=== PATIENT | female | born 1950 | race Caucasian/White ===

== ENCOUNTER 2025-01-24 15:12 | Outpatient (AMB) | payer OTHER, SELFPAY ==
--- NOTE | 2025-01-24 15:15 | MHC.OFFVIS ---
Vital Signs 01/24/25 15:16 Height 5 ft 5 in Weight 176 lb 2 oz BMI 29.3 BP 188/93 H Blood Pressure Location Rt brachial Position Sitting Pulse 79 Pulse Source Pulse Oximeter Pulse Oximetry (%) 97 Oxygen Delivery Method Room Air Intake Visit Reasons: Chronic Feet Pain/Neuropathy Allergies monosodium glutamate Allergy (Unknown, Unverified 01/24/25 15:19) RESPIRATION Penicillins [PENICILLINS] Allergy (Unknown, Unverified 01/24/25 15:19) HIVES Sulfa (Sulfonamide Antibiotics) [SULFA (SULFONAMIDE ANTIBIOTICS)] Allergy (Unknown, Unverified 01/24/25 15:19) HIVES HPI Comments Details: Allison is very unfortunate 74 years old female who presents in my office with complains on neuropathic pain in bilateral lower extremities. She reported that this pain started about 1 year ago. She does not know the reason for her pain however she thinks that it is because of her diabetes. Her hemoglobin A1c is equal to 7.5. So it is moderately elevated. She is currently taking metformin and Jardiance, however she wanted to request her primary care physician to stop her Jardiance because it gives her yeast infection in private parts. Her pain is bothering her mostly during the daytime at night she is given significant doses of the benzodiazepines and she is able to sleep. She is able to function normally. She is a resident in [facility] in [place], [place]. In terms of tissue damage he reports her pain as hot burning, scalding, searing, tingling, stinging, dull, hurting, heavy, tiring, exhausting, spreading, radiating, piercing sensation. She is retired individual. She went for physical therapy for her condition and it resulted in no improvement. She was seen a therapist for anxiety. Her past medical history is significant for diabetes, hypertension, she is not taking any medications for high blood pressure, she is diagnosed with dementia, however today she presents with very bright mind remembering short-term and long-term events, knowing the date, time, and name of the president of this country. Her past surgical history significant for right mastectomy which was performed 4 years ago. Currently she is in remission for her cancer. She received chemotherapy, she was not able to tolerate radiation. She denies smoking cigarettes she denies drinking alcohol she drinks coffee 2 cups per day, she denies recreational drugs. [facility] Social History (Updated 01/24/25 @ 15:19 by Jill Manzano CMA) Housing: Assisted Living Facility Alcohol intake: never Patient Tobacco Use Status: Never used Tobacco Review of Systems Const All systems reviewed & are unremarkable except as noted in HPI and below ENT Reports Normal hearing present Card Reports no additional complaints Resp Reports no additional complaints GI Reports no additional complaints Reports no additional complaints Musc Reports no additional complaints Neuro Reports as per HPI, Reports Normal hearing present, Denies Abnormal speech present, Denies confusion and Denies Sensory deficit (Neuro) Psych Reports as per HPI and Denies confusion Physical Exam Vital Signs: Last Vital Signs Pulse 79 01/24/25 15:16 BP 188/93 H 01/24/25 15:16 Pulse Ox 97 01/24/25 15:16 Oxygen Delivery Method Room Air 01/24/25 15:16 BMI result Body Mass Index 29.3 Const General: no acute distress; No confusion Orientation/consciousness: patient oriented x3 and No confusion Eyes General: appearance normal, both eyes and all related structures Pupils: Equal, round and reactive pupils present EOM: EOMs intact bilaterally Neck Neck: Yes full ROM Chest Other: On inspection absence of the right breast status post mastectomy Resp Effort & Inspection: normal respiratory effort, able to speak in complete sentences, normal respiratory pattern, no audible wheezes and no cough Cardio Jugular venous distension: no JVD GI Inspection: Yes normal to inspection Neuro General: patient oriented x3, gait normal and No confusion Cranial nerves: Yes CN's II-XII intact bilaterally, Yes Equal, round and reactive pupils present, Yes Normal hearing present and Yes Ability to bilaterally elevate shoulders present Speech: No Abnormal speech present Gait exam (Neuro): Normal gait present Motor exam (neuro): 5/5 motor strength present throughout Sensory Exam: No Sensory deficit (Neuro) Extrem Other: Red discoloration of the bilateral feet mostly mostly proximal foot and toes more on the left and less on the right. Dorsalis pedis pulses are symmetrical and well detected +2 bilaterally, posterior tibial pulses +1 symmetrical and well detected. Capillary refill is brisk without delay. General: No pedal edema Psych Speech and movement: Normal speech and movement present Affect: normal affect Attitude: cooperative Thought process: Normal thought process present Thought content: Normal thought content present Insight: Good insight present (Psych) Judgement: Good judgement present (Psych) Assessment & Plan Assessment & Plan (1) Malignant neoplasm of breast in remission: Code(s): C50.919 - Malignant neoplasm of unspecified site of unspecified female breast Category: Medical (2) Diabetic polyneuropathy: Code(s): E11.42 - Type 2 diabetes mellitus with diabetic polyneuropathy Category: Medical (3) Chronic pain syndrome: Code(s): G89.4 - Chronic pain syndrome Category: Medical (4) Peripheral neuropathy due to chemotherapy: Code(s): G62.0 - Drug-induced polyneuropathy; T45.1X5A - Adverse effect of antineoplastic and immunosuppressive drugs, initial encounter Category: Medical Plan This very pleasant and very unfortunate 74 years old female who lives in long-term facility. I believe medical management of her condition was not successful, she tried lidocaine without success, capsaicin products would not be indicated for this patient because of her uncontrolled hypertension, escalation of gabapentin probably is in practical and as it is stated in a primary care physician's note might result in worsening situation with her memory. Therefore believe the best option for this patient is Nevro spinal cord stimulation. For this procedure she needs to go for psychological evaluation. She will not be able to afford [facility] psychological evaluation, she does not have computer at home. Therefore in the order to proceed with a trial of spinal cord stimulator Nevro I would need to find a way to schedule her for consultation with a psychologist who will be willing and able to evaluate her and give us permission to schedule her for Nevro trial. The facility she lives in the facility for patients with memory problems however today she demonstrated very good long-term and short-term memory good orientation in person, time, and place, I personally do not believe passing psychological evaluation for spinal cord stimulation will be an issue for this patient. Patient Instructions: I here by testify that I spent 45 minutes in conversation with this patient as well as planning her care, organizing this note and calling this patient is facility to find out who will be able to help us with this patient's condition and psychological evaluation. Coding Level of Care Code New Pt Level 4 (81859) Diagnoses Malignant neoplasm of breast in remission C50.919 Diabetic polyneuropathy E11.42 Chronic pain syndrome G89.4 Peripheral neuropathy due to chemotherapy G62.0; T45.1X5A
[2025-01-24 15:16] VITALS: BP 188/93; PULSE 79; O2SAT 97; BMI 29.3
== END 2025-01-24 16:00 | disposition home or self-care (01) ==
PROVIDERS: PCP Family Medicine; Visit Provider Anesthesiology
DX: C50.919 Malignant neoplasm of unspecified site of unspecified female breast (principal); E11.42 Type 2 diabetes mellitus with diabetic polyneuropathy; G89.4 Chronic pain syndrome; G62.0 Drug-induced polyneuropathy; T45.1X5A Adverse effect of antineoplastic and immunosuppressive drugs, initial encounter
CPT/HCPCS: 99204

== ENCOUNTER → 2025-01-24 15:12 | Outpatient (BNVA) | payer OTHER, SELFPAY | PROVIDERS: PCP Family Medicine; Visit Provider Anesthesiology | DX: E11.42 Type 2 diabetes mellitus with diabetic polyneuropathy (principal); G62.0 Drug-induced polyneuropathy; T45.1X5A Adverse effect of antineoplastic and immunosuppressive drugs, initial encounter; C50.919 Malignant neoplasm of unspecified site of unspecified female breast; G89.4 Chronic pain syndrome | CPT/HCPCS: 99202 ==

== ENCOUNTER 2025-02-21 15:03 | Outpatient (AMB) | payer OTHER, SELFPAY ==
[2025-02-21 15:05] VITALS: BP 176/84; PULSE 88; O2SAT 96; BMI 28.8
--- NOTE | 2025-02-21 15:05 | MHC.OFFVIS ---
Vital Signs 02/21/25 15:05 Height 5 ft 5 in Weight 173 lb 6 oz BMI 28.8 BP 176/84 H Blood Pressure Location Rt brachial Position Sitting Pulse 88 Pulse Source Pulse Oximeter Pulse Oximetry (%) 96 Oxygen Delivery Method Room Air Intake Visit Reasons: 1 month FU Allergies monosodium glutamate Allergy (Unknown, Unverified 02/21/25 15:05) RESPIRATION Penicillins [PENICILLINS] Allergy (Unknown, Unverified 02/21/25 15:05) HIVES Sulfa (Sulfonamide Antibiotics) [SULFA (SULFONAMIDE ANTIBIOTICS)] Allergy (Unknown, Unverified 02/21/25 15:05) HIVES HPI Comments Details: Allison is back in my office with the same complaints. We were unable to reach anyone from her facility to help us to organize the psychological evaluation for this patient. I myself called today again to this facility trying to find out the lose end on who will be responsible for cut payment for this patient and unfortunately I failed to get into contact with anyone. I was given a telephone number of Ms. Erica Hanley [phone] and I was not able to leave the message. Allison is asking me to increase the doses of gabapentin for her today. She is currently getting 100 mg of gabapentin this is very insignificant dose. I will start her on 300 mg of gabapentin t.i.d.. Prior: very unfortunate 74 years old female who presents in my office with complains on neuropathic pain in bilateral lower extremities. She reported that this pain started about 1 year ago. She does not know the reason for her pain however she thinks that it is because of her diabetes. Her hemoglobin A1c is equal to 7.5. So it is moderately elevated. She is currently taking metformin and Jardiance, however she wanted to request her primary care physician to stop her Jardiance because it gives her yeast infection in private parts. She is a resident in [facility] [place] in [place], [place]. She went for physical therapy for her condition and it resulted in no improvement. She was seen a therapist for anxiety. Her past medical history is significant for diabetes, hypertension, she is not taking any medications for high blood pressure, she is diagnosed with dementia, however today she presents with very bright mind remembering short-term and long-term events, knowing the date, time, and name of the president of this country. Her past surgical history significant for right mastectomy which was performed 4 years ago. Currently she is in remission for her cancer. She received chemotherapy, she was not able to tolerate radiation. [facility] Social History Housing: Assisted Living Facility Alcohol intake: never Patient Tobacco Use Status: Never used Tobacco Review of Systems Const All systems reviewed & are unremarkable except as noted in HPI and below ENT Reports Normal hearing present Neuro Reports Normal hearing present, Denies Abnormal speech present, Denies confusion and Denies Sensory deficit (Neuro) Psych Denies confusion Physical Exam Vital Signs: Last Vital Signs Pulse 88 02/21/25 15:05 BP 176/84 H 02/21/25 15:05 Pulse Ox 96 02/21/25 15:05 Oxygen Delivery Method Room Air 02/21/25 15:05 BMI result Body Mass Index 28.8 Const General: no acute distress; No confusion Orientation/consciousness: patient oriented x3 and No confusion Eyes General: appearance normal, both eyes and all related structures Pupils: Equal, round and reactive pupils present EOM: EOMs intact bilaterally Neck Neck: Yes full ROM Chest Other: On inspection absence of the right breast status post mastectomy Resp Effort & Inspection: normal respiratory effort, able to speak in complete sentences, normal respiratory pattern, no audible wheezes and no cough Cardio Jugular venous distension: no JVD GI Inspection: Yes normal to inspection Neuro General: patient oriented x3, gait normal and No confusion Cranial nerves: Yes CN's II-XII intact bilaterally, Yes Equal, round and reactive pupils present, Yes Normal hearing present and Yes Ability to bilaterally elevate shoulders present Speech: No Abnormal speech present Gait exam (Neuro): Normal gait present Motor exam (neuro): 5/5 motor strength present throughout Sensory Exam: No Sensory deficit (Neuro) Extrem Other: Red discoloration of the bilateral feet mostly mostly proximal foot and toes more on the left and less on the right. Dorsalis pedis pulses are symmetrical and well detected +2 bilaterally, posterior tibial pulses +1 symmetrical and well detected. Capillary refill is brisk without delay. General: No pedal edema Psych Speech and movement: Normal speech and movement present Affect: normal affect Attitude: cooperative Thought process: Normal thought process present Thought content: Normal thought content present Insight: Good insight present (Psych) Judgement: Good judgement present (Psych) Assessment & Plan Assessment & Plan (1) Malignant neoplasm of breast in remission: Code(s): C50.919 - Malignant neoplasm of unspecified site of unspecified female breast Category: Medical (2) Diabetic polyneuropathy: Code(s): E11.42 - Type 2 diabetes mellitus with diabetic polyneuropathy Category: Medical (3) Chronic pain syndrome: Code(s): G89.4 - Chronic pain syndrome Category: Medical (4) Peripheral neuropathy due to chemotherapy: Code(s): G62.0 - Drug-induced polyneuropathy; T45.1X5A - Adverse effect of antineoplastic and immunosuppressive drugs, initial encounter Category: Medical Plan This very pleasant and very unfortunate 74 years old female who lives in long-term facility. I believe medical management of her condition was not successful, she tried lidocaine without success, capsaicin products would not be indicated for this patient because of her uncontrolled hypertension, I will try to escalate the doses of the gabapentin today. However I believe that she would mostly benefit from Nevro spinal cord stimulator. We can not go for the trial as soon as she passes psychological evaluation however I am not able to get into contact with her facility to allow us to proceed with psychological evaluation at her place of living. I will schedule appointment with this patient in 1 month. Medications: New gabapentin 300 mg PO TID 30 days 90 caps 8RF Patient Instructions: I here by testify that I spent 45 minutes today in conversation with this patient as well as trying to reach her facility and clear out who will be responsible for co-pay payment for psychological evaluation for this patient as well as planning her care and organizing this note. Coding Level of Care Code Est Pt Level 5 (27181) Diagnoses Malignant neoplasm of breast in remission C50.919 Diabetic polyneuropathy E11.42 Chronic pain syndrome G89.4 Peripheral neuropathy due to chemotherapy G62.0; T45.1X5A
== END 2025-02-21 15:18 | disposition home or self-care (01) ==
LOC: HO.PMC 15:03
PROVIDERS: PCP Family Medicine; Visit Provider Anesthesiology
DX: G89.4 Chronic pain syndrome (principal); G62.0 Drug-induced polyneuropathy; E11.42 Type 2 diabetes mellitus with diabetic polyneuropathy; C50.919 Malignant neoplasm of unspecified site of unspecified female breast; T45.1X5A Adverse effect of antineoplastic and immunosuppressive drugs, initial encounter
CPT/HCPCS: 99215

== ENCOUNTER → 2025-02-21 15:03 | Outpatient (BNVA) | payer OTHER, SELFPAY | PROVIDERS: PCP Family Medicine; Visit Provider Anesthesiology | DX: C50.919 Malignant neoplasm of unspecified site of unspecified female breast (principal); E11.42 Type 2 diabetes mellitus with diabetic polyneuropathy; G89.4 Chronic pain syndrome; G62.0 Drug-induced polyneuropathy; T45.1X5A Adverse effect of antineoplastic and immunosuppressive drugs, initial encounter | CPT/HCPCS: 99212 ==